=== PATIENT | male | born 1955 | race Caucasian/White ===

== ENCOUNTER 2020-10-31 12:04 | Emergency (ER) | payer MEDICARE, SELFPAY ==
[2020-10-31] VITALS (27 sets, daily range): BP systolic 114–133; BP diastolic 73–83; PULSE 70–75; RESP 15–20; TEMP 36.6; O2SAT 95–100
--- NOTE | ~2020-10-31 | XR_ITS ---
EXAMINATION: XR ankle RT min 3V EXAM DATE: 10/31/2020 12:26 INDICATION: Injury. Initial encounter. TECHNIQUE: Right ankle frontal, lateral and oblique projections obtained and reviewed. There is no p rior study for comparison. FINDINGS: Acute comminuted closed posttraumatic fractures of the right radial distal fibular metaphys is extending into the syndesmosis. Fracture fragment possibly extends into the superolateral aspect o f the mortise is well. There is posterior lateral displacement. Also acute closed posttraumatic fracture of the medial malleolus with lateral displacement, widening of the mortise medially. There is also posterior subluxation of the talus with respect to tibial plaf ond. IMPRESSION: 1. Acute displaced comminuted right distal fibular fracture into syndesmosis and also possibly morti se. 2. Acute medial malleolar base fracture with lateral displacement. 3. Mortise disruption with posterior lateral talar displacement. Reviewed, dictated and finalized at location B. HAND IMPRESSION: 1. Acute displaced comminuted right distal fibular fracture into syndesmosis a nd also possibly mortise. 2. Acute medial malleolar base fracture with lateral displacement. 3. Mortise disruption with posterior lateral talar displacement.
--- NOTE | ~2020-10-31 | XR_ITS ---
EXAMINATION: XR ankle LT 2V, XR tibia fibula RT 2V EXAM DATE: 10/31/2020 13:31 INDICATION: post reduction TECHNIQUE: Frontal and lateral projections of the right ankle. Frontal and lateral projections right tibia/fibula. Comparison is made to prior examination from earlier same date. FINDINGS: There is been partial reduction in the posterior lateral subluxation of the talus with res pect to the tibial plafond . Again there is acute comminuted right distal fibular fracture with some reduction in displacement. Medial malleolar base displaced fracture has been partially reduced. Proxi mal aspects of the tibia and fibula are unremarkable. A cast has been applied. IMPRESSION: Status post casting, partial reduction of right distal fibular metaphyseal and medial ma lleolar base fractures. Reviewed, dictated and finalized at location B. WASHER IMPRESSION: Status post casting, partial reduction of right distal fibular met aphyseal and medial malleolar base fractures.
--- NOTE | 2020-10-31 12:26 | ED.LOWEXIN ---
HPI - Extremity Injury (Lower) General Chief Complaint: Extremity Injury, Lower Stated Complaint: ankle injury Time Seen by Provider: 10/31/20 12:10 History of Present Illness HPI Narrative: 65 yo male presents to the ED for an ankle injury. Shortly before arrival he had a stack of plywood fall onto the his right ankle. He has severe pain and deformity. He is not able to bear weight. He reports that he has sensation in the foot with some tingling. Now wounds. No additional injury. Related Data Home Medications Medication Instructions Recorded Confirmed No Home Medications 10/07/19 10/07/19 Allergies Allergy/AdvReac Type Severity Reaction Status Date / Time No Known Allergies Allergy Verified 10/31/20 12:40 Review of Systems Review of Systems: All systems reviewed & are unremarkable except as noted in HPI and below Constitutional: Constitutional: Denies fever(s) and Denies weakness Cardiovascular: Cardiovascular: Denies chest pain Respiratory: Respiratory: Denies dyspnea Gastrointestinal: Gastrointestinal: Denies abdominal pain, Denies nausea and Denies vomiting Musculoskeletal: Musculoskeletal: Denies back pain Neurologic: Denies numbness and Denies weakness Hematologic/Lymphatic: Hematologic/Lymphatic: Denies easy bleeding and Denies easy bruising PMFSH Past Medical History Medical History (Updated 10/31/20 @ 15:09 by Chente Issa MD) Subdural hematoma Surgical History Surgical History History of brain surgery Social History Social History Smoking packs per day: 1 Smoking cigarettes per day: 20.0 Smoking status: Current every day smoker Tobacco type: cigarettes Alcohol intake: never Substance use: never Substance use type: does not use Exam Const: General: healthy appearing, no acute distress and alert Orientation/consciousness: patient oriented x3 HENMT: Head: normal to inspection Neck: Neck: normal visual inspection Resp: Effort & Inspection: normal respiratory effort Auscultation: clear to auscultation bilaterally Cardio: Rate: regular rate Rhythm: regular rhythm Other: 1 + right DP and PT Skin: Other: Mild abrasion over right lateral malleolus. Neuro: General: patient oriented x3, moves all extremities, no meningeal signs and CN's II-XI intact bilaterally Speech: normal speech Other: Distal motor and sensation in RLE Extrem: Other: Obvious deformity of right ankle. Course Vital Signs Vital signs: Vital Signs Temperature 36.6 C 10/31/20 12:46 Pulse Rate 75 10/31/20 12:46 Respiratory Rate 20 10/31/20 12:46 Pulse Oximetry 100 10/31/20 12:46 Temperature 36.6 C 10/31/20 12:46 Pulse Rate 75 10/31/20 12:46 Respiratory Rate 20 10/31/20 12:46 Blood Pressure 117/73 10/31/20 17:46 Pulse Oximetry 95 10/31/20 17:46 Procedures Orthopedic Fracture Reduction Fracture #1: Fracture Reduction date: 10/31/20 Side: right Fracture Reduction Location: tibia and fibula Analgesia: hematoma block and other Pre-Procedure Neuro Vascular Exam: normal Technique: direct manipulation Post Reduction X-rays Demonstrate: anatomical reduction Post-reduction neuro exam: intact Post-reduction vascular exam: intact Splint Applied: Yes Patient Tolerated Procedure: well Orthopedic Splinting/Casting Injury #1: Side: right Lower Extremity Injury Location: ankle Splint: customized in ED OCL: short leg Pre-Procedure Neuro Vascular Exam: normal Post-Procedure Neuro Vascular Exam: normal MDM - Extremity Injury (Lower) MDM Narrative Medical decision making narrative: Case discussed with Dr. Marinelli. He feels that the patient will require an ortho trauma specialist. Transfer arranged to [place] ED. Differential Diagnosis Di
[2020-10-31] MEDS: MORPHINE SULFATE (*CRX) 4 MG/ML INJ IV PUSH ×3 (12:41→18:55)
[2020-10-31] MEDS: LIDOCAINE HCL 1% LOCAL INJ 20 ML VIAL INFILTRATE (12:41)
[2020-10-31] MEDS: fentaNYL CITRATE INJ (*CRX) 100 MCG/2 ML VIAL (12:59)
--- NOTE | 2020-10-31 19:20 | PC.NURSE ---
contact [employer] for an update new eta is 2000
--- NOTE | 2020-10-31 19:25 | PC.NURSE ---
Assumed care of pt, pt is alert and upright on stretcher, pt at bedside. Pt on tele monitor and VSS. Discussed POC.
--- NOTE | 2020-10-31 21:41 | PC.NURSE ---
karolina arrived at 192
== END 2020-10-31 20:48 | disposition short-term general hospital (02) ==
PROVIDERS: Emergency Provider Emergency Medicine; PCP Emergency Medicine
DX: S82.841A Displaced bimalleolar fracture of right lower leg, initial encounter for closed fracture (principal); F17.210 Nicotine dependence, cigarettes, uncomplicated; W20.8XXA Other cause of strike by thrown, projected or falling object, initial encounter
CPT/HCPCS: 27810; 73590; 73600; 73610; 99285; J2270; J3010

== ENCOUNTER 2021-08-14 09:58 | Outpatient (CLI) | payer MEDICARE, SELFPAY ==
--- NOTE | ~2021-08-14 | CT_ITS ---
EXAMINATION: CT lung screening DATE: 08/14/2021 10:12 INDICATION: Personal history of tobacco dependence, prior smoker with 30 pack year history TECHNIQUE: Computed tomography (CT) of the chest was performed without intravenous contrast. The dose -length product (DLP) was 138.39 mGy-cm. Automated exposure control and iterative reconstruction tech [employer] were employed. COMPARISON: None FINDINGS: There is mild emphysema. No suspicious pulmonary nodules are identified. Calcified pulmonar y nodules and calcified left hilar lymph nodes are consistent with old granulomatous disease. There i s mild atelectasis of the lower lobes. There is no pleural effusion or pneumothorax. No pathologicall y enlarged thoracic lymph nodes are identified. The heart size is normal. There is a 10 mm cyst of th e left hepatic lobe. There is mild thoracic spondylosis. IMPRESSION: 1. Lung-RADS category 1: Negative. Continue annual screening with noncontrast low-dose chest CT in 12 months. Reviewed, dictated and finalized at location A. IMPRESSION: 1. Lung-RADS category 1: Negative. Continue annual screening with noncontrast l ow-dose chest CT in 12 months.
--- NOTE | ~2021-08-14 | US_ITS ---
EXAMINATION: US abdomen complete EXAM DATE: 08/14/2021 10:59 INDICATION: Smoking Hx Smoking History TECHNIQUE: Multiple grayscale and Doppler images of the complete abdomen were obtained (by a technolo gist who performed the scan) and subsequently reviewed. There is no prior study for comparison. FINDINGS: The abdominal aorta is normal in caliber. Visualized portion IVC is patent. The pancreatic head a nd body are normal in appearance. The pancreatic tail is not visualized. The liver has normal echogenicity and contour. Several small anechoic liver lesions consistent with cysts measuring up to 1 cm. There is no evidence of intrahepatic biliary duct dilation. Portal veno us flow was seen in the hepatopedal, normal direction and has normal Doppler waveform. Common bile duct measures 6 mm, which is normal. The gallbladder wall is normal in thickness, with ex pected amount of distention. No sonographic evidence of pericholecystic fluid. There is no cholelit hiases. Technologist performing exam reports patient did not demonstrate sonographic Light's sign. Please note that this sign is less reliable in patients who have received pain medication. Right kidney: There is normal contour and echogenicity. It measures 10.4 x 5.3 x 4.6 centimeters. There are no focal renal lesions identified. There is no hydronephrosis. Left kidney: There is normal contour and echogenicity. It measures 11.7 x 5.3 x 6.2 centimeters. T here are no focal renal lesions identified. There is no hydronephrosis. The spleen measures 11.2 centimeters and is morphologically normal. IMPRESSION: 1. Unremarkable complete abdominal ultrasound exam. Reviewed, dictated and finalized at location B.
== END 2021-08-14 09:59 | disposition home or self-care (01) ==
LOC: ANHIMG 09:59
PROVIDERS: PCP Emergency Medicine; Visit Provider Emergency Medicine
DX: Z12.2 Encounter for screening for malignant neoplasm of respiratory organs (principal); Z87.891 Personal history of nicotine dependence
CPT/HCPCS: 71271; 76700

== ENCOUNTER → 2022-03-29 02:32 | Outpatient (CLI) | payer MEDICARE, SELFPAY ==
[2022-03-29 16:50] LABS: SARS-CoV-2 RNA PCR Positive
== END ==
PROVIDERS: PCP Emergency Medicine; Visit Provider Emergency Medicine
DX: U07.1 COVID-19 (principal); R50.9 Fever, unspecified
CPT/HCPCS: C9803; U0003; U0005

== ENCOUNTER 2022-09-30 15:33 | Outpatient (CLI) | payer MEDICARE, SELFPAY ==
--- NOTE | ~2022-09-30 | CT_ITS ---
EXAMINATION: CT lung screening DATE: 09/30/2022 15:48 INDICATION: Personal history of nicotine dependence, prior smoker with 30 pack year history TECHNIQUE: Computed tomography (CT) of the chest was performed without intravenous contrast. The dose -length product (DLP) was 113.19 mGy-cm. Automated exposure control and iterative reconstruction tech [employer] were employed. COMPARISON: 08/14/2021 FINDINGS: There is mild emphysema. Calcified pulmonary nodules and calcified left hilar lymph nodes a re consistent with old granulomatous disease. No pathologically enlarged thoracic lymph nodes are [place] ntified. The heart size is normal. No pleural effusion or pneumothorax. There is an 11 mm cyst of the left hepatic lobe. Mild thoracic spondylosis is noted. IMPRESSION: 1. Lung-RADS category 1: Negative. Continue annual screening with noncontrast low-dose chest CT in 12 months. Reviewed, dictated and finalized at location A. FACTURERS REPRESENTATIVE IMPRESSION: 1. Lung-RADS category 1: Negative. Continue annual screening with noncontrast l ow-dose chest CT in 12 months.
== END 2022-09-30 15:34 | disposition home or self-care (01) ==
PROVIDERS: PCP Emergency Medicine; Visit Provider Emergency Medicine
DX: Z12.2 Encounter for screening for malignant neoplasm of respiratory organs (principal); Z87.891 Personal history of nicotine dependence
CPT/HCPCS: 71271

== ENCOUNTER 2023-04-28 11:39 | Outpatient (CLI) | payer MEDICARE, SELFPAY ==
[2023-04-28 11:53] LABS: Basophils Percent Auto 0.3 % (0.2-1.2); Eosinophils Absolute Auto 0.3 K/mm3 (0-0.3); Eosinophils Percent Auto 3.7 % (0-4.4); Hematocrit 38.7 % (42.0-52.0); Hemoglobin 12.8 g/dL (14.0-18.0); Immature Granulocyte Absolute 0.02 K/mm3 (0.00-0.031); Immature Granulocyte Percent A 0.3 % (0-0.5); Lymphocytes Absolute Auto 2.18 K/mm3 (0.9-3.2); Lymphocytes Percent Auto 29.8 % (18.3-44.2); Mean Corpuscular HGB Conc 33.1 g/dl (32-36); Mean Corpuscular Hemoglobin 30.4 pg (26-34); Mean Corpuscular Volume 91.9 fl (80-100); Mean Platelet Volume 9.1 fl (7.4-10.4); Monocytes Absolute Auto 0.6 K/mm3 (0.1-0.6); Monocytes Percent Auto 8.8 % (2.6-8.5); Neutrophils Absolute Auto 4.2 K/mm3 (1.3-6.7); Neutrophils Percent Auto 57.1 % (45.5-73.1); Platelet Count Result 249 k/mm3 (150-375); Red Blood Count 4.21 M/mm3 (4.6-6.20); White Blood Count 7.3 K/mm3 (4.5-10.0)
[2023-04-28 13:11] LABS: Iron 111 ug/dL (49-181)
[2023-04-28 13:16] LABS: Alanine Aminotransferase 29 U/L (6-50); Albumin Level 4.3 g/dL (3.5-5.1); Alkaline Phosphatase 82 U/L (38-126); Anion Gap 4 mmol/L (8-16); Aspartate Amino Transferase 30 U/L (17-59); Bilirubin,Total 0.5 mg/dL (0.2-1.3); Blood Urea Nitrogen 17 mg/dL (9-20); Calcium 9.5 mg/dL (8.4-10.2); Carbon Dioxide 29 mmol/L (22-30); Chloride 106 mmol/L (98-107); Estimated Glomerular Filt Rate > 60; Glucose 93 mg/dL (65-110); Potassium 4.5 mmol/L (3.4-5.0); Sodium 139 mmol/L (137-145)
[2023-04-28 13:20] LABS: Percent Iron Saturation 37 % (20-50)
[2023-05-01 12:32] LABS: Methylmalonic Acid 154 nmol/L (87-318)
[2023-05-02 20:31] LABS: Soluble Transferrin Receptor 0.97 mg/L (0.76-1.76)
== END 2023-04-28 11:40 | disposition home or self-care (01) ==
LOC: ANHLAB 11:41
PROVIDERS: PCP Emergency Medicine; Visit Provider Internal Medicine Hematology & Oncology
DX: D64.9 Anemia, unspecified (principal)
CPT/HCPCS: 36415; 80053; 82607; 82728; 82746; 83540; 83550; 83921; 84238; 85025

== ENCOUNTER 2023-12-04 13:20 | Outpatient (CLI) | payer MEDICARE, SELFPAY ==
[2023-12-04 13:32] LABS: Basophils Percent Auto 0.1 % (0.2-1.2); Eosinophils Absolute Auto 0.3 K/mm3 (0-0.3); Eosinophils Percent Auto 3.5 % (0-4.4); Hematocrit 40.2 % (42.0-52.0); Immature Granulocyte Absolute 0.03 K/mm3 (0.00-0.031); Immature Granulocyte Percent A 0.4 % (0-0.5); Lymphocytes Absolute Auto 2.08 K/mm3 (0.9-3.2); Lymphocytes Percent Auto 26.4 % (18.3-44.2); Mean Corpuscular HGB Conc 32.3 g/dl (32-36); Mean Corpuscular Hemoglobin 30.6 pg (26-34); Mean Corpuscular Volume 94.6 fl (80-100); Mean Platelet Volume 9.6 fl (7.4-10.4); Monocytes Absolute Auto 0.6 K/mm3 (0.1-0.6); Monocytes Percent Auto 8.1 % (2.6-8.5); Neutrophils Absolute Auto 4.9 K/mm3 (1.3-6.7); Neutrophils Percent Auto 61.5 % (45.5-73.1); Platelet Count Result 248 k/mm3 (150-375); Red Blood Count 4.25 M/mm3 (4.6-6.20); White Blood Count 7.9 K/mm3 (4.5-10.0)
[2023-12-04 17:16] LABS: Anion Gap 7 mmol/L (8-16); Blood Urea Nitrogen 22 mg/dL (9-20); Calcium 9.7 mg/dL (8.4-10.2); Carbon Dioxide 27 mmol/L (22-30); Chloride 106 mmol/L (98-107); Estimated Glomerular Filt Rate > 60; Glucose 83 mg/dL (65-110); Potassium 4.3 mmol/L (3.4-5.0); Sodium 140 mmol/L (137-145)
[2023-12-04 18:30] LABS: Folic Acid 10.5 ng/mL (2.76->20)
== END 2023-12-04 13:21 | disposition home or self-care (01) ==
LOC: ANHLAB 13:22
PROVIDERS: PCP Emergency Medicine; Visit Provider Internal Medicine Hematology & Oncology
DX: D64.9 Anemia, unspecified (principal)
CPT/HCPCS: 36415; 80048; 82607; 82746; 85025

== ENCOUNTER 2024-04-29 12:55 | Emergency (ER) | payer MEDICARE, SELFPAY ==
--- NOTE | ~2024-04-29 | XR_ITS ---
EXAMINATION: XR hip RT 2V w AP pelvis DATE: 04/29/2024 13:55 INDICATION: Nontraumatic pain at the sacroiliac joints radiating to the right leg. TECHNIQUE: Anteroposterior view of the pelvis and anteroposterior and frog leg lateral views of the r ight hip were obtained. COMPARISON: None. FINDINGS: Bone alignment is normal. No fracture. Mild osteoarthritis at the bilateral hip and sacroiliac joints . No erosions to suggest an inflammatory sacroiliitis. No suspected osteonecrosis. At least mild, pot entially moderate lower lumbar spondylosis. Multiple phleboliths in the pelvis. IMPRESSION: 1. Mild bilateral hip and sacroiliac osteoarthritis. No acute osseous abnormality. Reviewed, dictated and finalized at location A. IMPRESSION: 1. Mild bilateral hip and sacroiliac osteoarthritis. No acute osseous abnormali ty.
[2024-04-29 12:56] VITALS: BP 111/73; PULSE 83; RESP 16; TEMP 36.4; O2SAT 98
--- NOTE | 2024-04-29 13:15 | ED.LOWEXIN ---
HPI - Extremity Injury (Lower) General Chief Complaint: Extremity Injury, Lower Stated Complaint: r hip pain Time Seen by Provider: 04/29/24 13:02 Source: patient and family Mode of arrival: ambulatory Limitations: no limitations History of Present Illness HPI Narrative: 68 YEARS OLD WHITE MALE DROVE HIMSELF TO THE EMERGENCY ROOM COMPLAINING OF PAIN AT THE RIGHT SACROILIAC JOINT STARTED 2 WEEKS AGO, UNKNOWN TRAUMA. WORSE WITH CERTAIN POSITION AND MOVEMENT, BETTER IF HE DOES NOT MOVE. HE DENIES ANY FEVER, CHILLS, NAUSEA, VOMITING, WEAKNESS, NUMBNESS OR TINGLING OR FOCAL NEURO DEFICIT PAIN DOES NOT RADIATE. Related Data Allergies Allergy/AdvReac Type Severity Reaction Status Date / Time No Known Allergies Allergy Verified 04/29/24 12:58 Review of Systems Review of Systems: All systems reviewed & are unremarkable except as noted in HPI and below PMFSH Past Medical History Medical History (Updated 04/29/24 @ 13:50 by Massiel Mcnulty MD) Subdural hematoma Surgical History Surgical History History of brain surgery Social History Social History Smoking packs per day: 1 Smoking cigarettes per day: 20.0 Smoking status: Current every day smoker Tobacco type: cigarettes Alcohol intake: never Substance use: never Substance use type: does not use Exam Narrative: GENERAL APPEARANCE: WELL-DEVELOPED, WELL-NOURISHED SKIN: NORMAL COLOR HEAD: NORMOCEPHALIC, NONTRAUMATIC EYES: CLEAR CONJUNCTIVA ENT: OROPHARYNX NORMAL, EARS NORMAL, NOSE NORMAL NECK: SUPPLE, NONTENDER CHEST AND RESPIRATORY: AIRWAY PATENT, NO RESPIRATORY DISTRESS, NO ACCESSORY MUSCLE USE HEART: REGULAR RATE/RHYTHM ABDOMEN: SOFT, NONTENDER, NO ORGANOMEGALY, QUIET BOWEL SOUNDS VASCULAR: NORMAL PERIPHERAL PULSES, NORMAL CAPILLARY REFILL. MUSCULOSKELETAL: MODERATE TENDERNESS THE CENTER OF THE RIGHT BUTTOCK, NO BRUISES, NO SWELLING, OR RASH NEUROLOGIC: ALERT AND ORIENTED ?3, PROFESSOR OF FAMILY MEDICINE IS NORMAL TESTED, NO GROSS MOTOR DEFICIT NEGATIVE RIGHT LEG RAISE TEST Course Vital Signs Vital signs: Vital Signs Temperature 36.4 C 04/29/24 12:56 Pulse Rate 83 04/29/24 12:56 Respiratory Rate 16 04/29/24 12:56 Blood Pressure 111/73 04/29/24 12:56 Pulse Oximetry 98 04/29/24 12:56 Oxygen Delivery Room Air 04/29/24 12:56 Temperature 36.4 C 04/29/24 12:56 Pulse Rate 83 04/29/24 12:56 Respiratory Rate 16 04/29/24 12:56 Blood Pressure 111/73 04/29/24 12:56 Pulse Oximetry 98 04/29/24 12:56 Oxygen Delivery Room Air 04/29/24 12:56 MDM - Extremity Injury (Lower) MDM Narrative Medical decision making narrative: MUSCULOSKELETAL PAIN, SACROILIAC ARTHRITIS ARE MY CONCERN. X-RAY RIGHT HIP AND PELVIS SHOWED NO ACUTE ABNORMALITIES. PATIENT RECEIVED IBUPROFEN AND NORCO PRIOR TO DISCHARGE HERNIA. DISCHARGED ON DICLOFENAC AND OMEPRAZOLE Differential Diagnosis Differential diagnosis: Likely other ( ABOVE) Imaging Data Radiologist's impression: Impressions Hip/Pelvis X-Ray 04/29/24 14:00 IMPRESSION: 1. Mild bilateral hip and sacroiliac osteoarthritis. No acute osseous abnormality. Critical Care Time Critical Care Time Critical Care Time: No Discharge Plan Discharge Clinical Impression: Lower back pain Patient Disposition: Home, Self-Care Condition: Stable Instructions: Antibiotic Form, Sacroiliitis (ED) Additional Instructions: RETURN IF SYMPTOMS ARE WORSENING , CALL YOUR FAMILY PHYSICIAN FOR APPOINTMENT, TAKE TYLENOL NEEDED FOR ACHES AND PAIN, CONTINUE HOME MEDICATIONS. Prescriptions: New d
[2024-04-29] MEDS: HYDROcodone/acetaminophen (*CRX) 5-325 MG TABLET 1 TAB PO (14:14)
[2024-04-29] MEDS: IBUPROFEN 600 MG TABLET PO (14:15)
[2024-04-29 14:47] VITALS: PULSE 77; RESP 18; O2SAT 97
== END 2024-04-29 14:47 | disposition home or self-care (01) ==
PROVIDERS: Emergency Provider Emergency Medicine; PCP Emergency Medicine
DX: M54.50 Low back pain, unspecified (principal); F17.210 Nicotine dependence, cigarettes, uncomplicated; M16.0 Bilateral primary osteoarthritis of hip; M46.1 Sacroiliitis, not elsewhere classified
CPT/HCPCS: 73502; 99283; A9270

== ENCOUNTER 2024-07-19 14:54 | Outpatient (CLI) | payer MEDICARE, SELFPAY ==
--- NOTE | ~2024-07-19 | CT_ITS ---
EXAMINATION: CT brain wo con DATE: 07/19/2024 15:21 INDICATION: Subdural hematoma TECHNIQUE: Computed tomography (CT) of the head was performed without intravenous contrast. Sagittal and coronal reconstructions were performed. The mA was adjusted according to patient size. Iterative reconstruction technique was employed. The dose-length product was 605.33 mGy-cm. COMPARISON: head CT dated 10/07/19 FINDINGS: No acute intracranial hemorrhage or acute infarction. There is been interval left frontal craniotomy at the site of prior chelsi holes. There is slight asymmetry to the CSF attenuation fluid overlying the convexities with significant decrease in size of a now very small left subdural hygroma with negligi ble elevation of the cortical veins from the periosteum with mild increased fluid in the subarachnoid spaces overlying both convexities related to mild age-appropriate diffuse volume loss including the majority of the fluid on the left. No high attenuation blood to suggest an acute/subacute hemorrhage. Ventricles are normal and symmetric. No mass/mass effect. Opacification of the visualized portion of one of the posterior left ethmoid air cells. The orbits and mastoid air cells are normal. IMPRESSION: 1. Interval left frontal craniotomy and decrease in size of a now very small chronic left subdural hy groma with the majority of the CSF attenuation fluid overlying the convexities related to age-appropr iate mild diffuse volume loss with increased subarachnoid fluid. No recent hemorrhage or other acute intracranial process. Reviewed, dictated and finalized at location A. IMPRESSION: 1. Interval left frontal craniotomy and decrease in size of a now very small ch ronic left subdural hygroma with the majority of the CSF attenuation fluid over lying the convexities related to age-appropriate mild diffuse volume loss with increased subarachnoid fluid. No recent hemorrhage or other acute intracranial process.
== END 2024-07-19 14:55 | disposition home or self-care (01) ==
LOC: ANHIMG 14:58
PROVIDERS: PCP Emergency Medicine; Visit Provider Physician Assistant
DX: S06.5XAA Traumatic subdural hemorrhage with loss of consciousness status unknown, initial encounter (principal); X58.XXXA Exposure to other specified factors, initial encounter; G96.08 Other cranial cerebrospinal fluid leak
CPT/HCPCS: 70450